=== PATIENT | male | born 1975 | race Caucasian/White ===

== ENCOUNTER → 2016-08-15 | Day surgery (SDC) | payer BC ==
[2016-08-15] VITALS (9 sets, daily range): BP systolic 100–149; BP diastolic 56–88
[~2016-08-15] VITALS: Ht 175.3 cm; Wt 84.4 kg
[~2016-08-15] MED LIST: Acetic Acid 3% Solution 15ml TOPIC ONE; Bupivacaine 0.25% Inj 30ml INJ ONE; Clindamycin 6 ML ONE; Dexamethasone 4mg/ml vial ONE; DiphenhydrAMINE 50mg/ml Inj IVP PRN; EPINEPHrine 1mg/1ml Amp ONE; Hydromorphone 0.5mg/0.5ml inj IVP PRN; Ketorolac 30mg Inj IV PRN; LR 1000ml 1,000 ML IVLG SCH; LR 1000ml ONE; Labetalol 5mg/ml 20ml vial IV PRN; Lidocaine 1% MPF 10mg/ml 5ml ONE; NOVOLOG100 UNITS1 SUBQ; NS Irrig 1000ml ONE; Propofol 10mg/ml 20ml IV ONE; Ropivacaine 5mg/ml Vial 20ml INJ ONE; Sterile Water Irrig 1000ml IRRIG ONE; TRESIBA FL200 UNIT/1 SQ; fentaNYL 100 mcg/2 mL IV ONE; fentaNYL 100 mcg/2 mL IV PRN
--- NOTE | 2016-08-15 07:46 | Pre-Procedure Note/Attestation ---
Pre-Procedure Note/Attestation Complete Prior to Procedure Planned Procedure: not applicable Procedure Narrative: Transanal excision of rectal polyp Indications for Procedure Pre-Operative Diagnosis: Rectal polyp Attestation I attest that I discussed the nature of the procedure; its benefits; risks and complications; and alternatives (and the risks and benefits of such alternatives ), prior to the procedure, with the patient (or the patient's legal branch service representative). I attest that, if there was a reasonable possibility of needing a blood transfusion, the patient (or the patient's legal branch service representative) was given the [facility] standardized written summary, pursuant to the Kirill Roland Blood Safety Act ([place] Health and Safety Code # 1645, as amended). I attest that I re-evaluated the patient just prior to the surgery and that there has been no change in the patient's H&P, except as documented below: KAMILA MELLO Aug 15, 2016 07:46
--- NOTE | 2016-08-15 08:59 | Anethesia Preoperative Eval ---
Anesthesia Pre-op PMH/ROS General Date of Evaluation: Aug 15, 2016 Anesthesiologist: Galo ASA Score: ASA 2 Mallampati Score Class I : Soft palate, uvula, fauces, pillars visible Class II: Soft palate, uvula, fauces visible Class III: Soft palate, base of uvula visible Class IV: Only hard plate visible Mallampati Classification: Class II Surgeon: Juan Diagnosis: Anal mass Surgical Procedure: Excision rectal polyp Anesthesia History: none Family History: no anesthesia problems Allergies: Coded Allergies: CEFACLOR (Verified Allergy, Unknown, 08/15/16) ERYTHROMYCIN BASE (Verified Allergy, Unknown, 08/15/16) PENICILLINS (Verified Allergy, Unknown, 08/15/16) Medications: see eMAR Past Medical History Cardiovascular: Denies: CAD, HTN, HI, arrhythmia, other, valve dz Pulmonary: Denies: COPD, SARBJIT, asthma, other Gastrointestinal/Genitourinary: Denies: CRI, ESRD, GERD, other Neurologic/Psychiatric: Denies: CVA, TIA, dementia, depression/anxiety, other Endocrine: Reports: DM, Denies: hypothyroidism, other, steroids HEENT: Denies: TLINGIT & HAIDA (L), TLINGIT & HAIDA (R), cataract (L), cataract (R), glaucoma, other Hematology/Immune: Denies: DVT, anemia, bleeding disorder, other Musculoskeletal/Integumentary: Denies: DDD, DJD, OA, RA, edema, other PSxH Narrative: Denies Anesthesia Pre-op Phys. Exam Physician Exam see chart Constitutional: NAD Cardiovascular: RRR Respiratory: CTA Airway Exam Mallampati Score: Class II MO: full ROM: full Teeth: intact Anesthesia Pre-op A/P Labs see chart Studies Pre-op Studies: EKG - sr Risk Assessment & Plan Assessment: ASA II Plan: MAC Status Change Before Surgery: No Pre-Antibiotics Drug: Clindamycin 900mg Given Within 1 Hr of Incision: JUAN Miranda M.D. Aug 15, 2016 08:59
--- NOTE | 2016-08-15 09:43 | 48 Hour Post Anesthesia Eval ---
Post Anesthesia Evaluation Procedure: Rectal polyp excision Date of Evaluation: Aug 15, 2016 Blood Pressure Systolic: 112 0: 72 Pulse Rate: 74 Respiratory Rate: 16 O2 Sat by Pulse Oximetry: 99 Airway: patent Nausea: No Vomiting: No Pain Intensity: 0 Hydration Status: adequate Cardiopulmonary Status: at baseline Mental Status/LOC: patient returned to baseline Post-Anesthesia Complications: 0 Follow-up care needed: ready to discharge JUAN BALL M.D. Aug 15, 2016 09:43
--- NOTE | 2016-08-15 09:43 | Immediate Post-Op Evaluation ---
Immediate Post-Op Evalulation Immediate Post-Op Evalulation Procedure: Rectal polyp excision Date of Evaluation: Aug 15, 2016 Time of Evaluation: 10:28 IV Fluids: 500 Blood Products: 0 Estimated Blood Loss: min Urinary Output: 0 Blood Pressure Systolic: 105 Blood Pressure Diastolic: 64 Pulse Rate: 70 Respiratory Rate: 16 O2 Sat by Pulse Oximetry: 97 Temperature (Fahrenheit): 98.1 Pain Score (1-10): 0 Nausea: No Vomiting: No Complications 0 Patient Status: awake, reacts, patent, none Hydration Status: adequate Drug: Clindamycin 900mg Given Within 1 Hr of Incision: Yes Time Given: 09:50 JUAN BALL M.D. Aug 15, 2016 09:43
--- NOTE | 2016-08-15 10:26 | Brief Operative Note ---
Immediate Post Operative Note Operative Note Pre-op Diagnosis: Rectal polyp Procedure: Transanal excision of rectal polyp Post-op Diagnosis: same Post-op Diagnosis: same as pre-op Findings: consistent w/pre-op dx studies Surgeon: Esther Mello MD Anesthesiologist: Sada Emmanuel MD Anesthesia: moderate sedation Specimen: yes Complications: none Condition: stable Estimated Blood Loss: minimal Drains: none Implant(s) used?: No ESTHER MELLO Aug 15, 2016 10:26
--- NOTE | 2016-08-15 10:27 | Discharge Instructions ---
Discharge Instructions Discharge Instructions Diet: regular Activity: as tolerated Special Instructions - remove dressings tonight. Do not replace. - may shower and bathe For Surgical Patients May shower: Yes For Congestive Heart Failure Reminder Report to your physician any weight gain of 5 pounds or more in one week. KAMILA MELLO Aug 15, 2016 10:27
--- NOTE | 2016-08-15 10:30 | Discharge Instructions ---
Discharge Instructions Discharge Instructions Diet: regular Activity: as tolerated Follow Up Orders - remove dressings tonight. Do not replace. - may shower and bathe. For Congestive Heart Failure Reminder Report to your physician any weight gain of 5 pounds or more in one week. KAMILA MELLO Aug 15, 2016 10:30
--- NOTE | 2016-08-15 15:08 | Operative Note - Dictated ---
DATE OF OPERATION: 08/15/2016 PREOPERATIVE DIAGNOSIS: Prolapsing rectal polyp. POSTOPERATIVE DIAGNOSIS: Prolapsing rectal polyp. PROCEDURE: Transanal excision of rectal polyp. SURGEON: Esther Martinez M.D. ANESTHESIOLOGIST: Sada Emmanuel M.D. ANESTHESIA: Propofol sedation, local anesthetic. INDICATION FOR PROCEDURE: The patient is a 40-year-old, male, who was sent to my office by his physician Dr. Reinier Darby for colorectal surgical evaluation of a prolapsing rectal polyp. The patient reports that he has had anal pain for the last two years and thought he had hemorrhoids. On physical examination , he was found to have a polyp in the right lateral rectal area which was prolapsed out. In light of the patient's symptoms, it was determined at this time to proceed with excision under sedation. DESCRIPTION OF PROCEDURE: Upon consent of the patient, the patient was brought to the operating room, and placed in prone reinier-knife position on the operating table. Once adequate sedation was established with propofol drip, the patient's buttocks were prepped and draped in the usual surgical fashion. Thirty cc of 0.5% ropivacaine with epinephrine mixed with 6 mg of dexamethasone was used as perianal and pudendal block. A Hill-Da Silva retractor was placed into the anal canal. There was noted to be small internal hemorrhoids. There was a prolapsing rectal polyp in the right lateral perianal region proximal to the dentate line which was excised full-thickness from its base and sent off the field as specimen. The mucosal defect was closed with a [id number] 0-Vicryl suture. The anal canal was then irrigated and hemostasis was confirmed. Sterile dry dressing was used as an outer dressing. Sponge, needle, and instrument counts were correct at the end the case. The patient was awakened from anesthesia and brought to the postanesthesia recovery room in stable condition. ESTIMATED BLOOD LOSS: Less than 1 mL. DRAINS: None. SPECIMEN: Rectal polyp. COMPLICATIONS: None. Esther Martinez M.D. DR: Delores JOB#: [id number] CC: Esther Martinez M.D.; Fax#: [phone] Hernandez
== END | disposition home or self-care (01) ==
LOC: SUR 08:41
DX: K62.1 Rectal polyp (principal); K64.8 Other hemorrhoids; E10.9 Type 1 diabetes mellitus without complications; Z88.3 Allergy status to other anti-infective agents; Z88.1 Allergy status to other antibiotic agents; Z88.0 Allergy status to penicillin
CPT/HCPCS: 45171; 82962; J0171; J1100; J2250; J2405; J2704; J2795; J3010; J7120; S0077; 94003; 94150